=== PATIENT | female | born 1965 | race Caucasian/White ===

== ENCOUNTER 2016-11-26 | Emergency (ER) | payer MEDICAID | END 2016-11-26 12:27 | disposition home or self-care (01) ==

== ENCOUNTER 2017-02-14 10:03 | Outpatient (CLI) | payer MEDICAID | END 2017-02-14 10:04 | disposition home or self-care (01) | DX: Z12.31 Encounter for screening mammogram for malignant neoplasm of breast (principal) ==

== ENCOUNTER 2017-08-18 08:00 | Outpatient (CLI) | payer MEDICAID ==
[2017-08-18 19:15] LABS: BASOPHILS % (AUTO) 0.6 %; EOSINOPHILS # (AUTO) 0.2 10^3/uL (0.0-0.7); EOSINOPHILS % (AUTO) 3.3 %; HCT - HEMATOCRIT 41.7 % (37.0-47.0); HGB - HEMOGLOBIN 13.7 g/dL (12.0-16.0); LYMPHOCYTES % (AUTO) 26.1 %; MEAN CORPUSCULAR HEMOGLOBIN 29.7 pg (27.0-31.0); MEAN CORPUSCULAR VOLUME 90.1 fL (81.0-99.0); MEAN PLATELET VOLUME 8.3 fL (7.9-10.8); MONOCYTES # (AUTO) 0.5 10^3/uL (0.0-1.0); MONOCYTES % (AUTO) 6.2 %; NEUTROPHILS # (AUTO) 4.8 10^3/uL (1.5-6.6); NEUTROPHILS % (AUTO) 63.8 %; NUCLEATED RED BLOOD CELLS AUTO 0.2 /100WBC; RED BLOOD COUNT 4.62 10^6/uL (4.20-5.40); RED CELL DISTRIBUTION WIDTH 13.6 % (12.0-15.0); UNCORRECTED WHITE BLOOD COUNT 7.5 x10^3/uL; WHITE BLOOD COUNT 7.5 x10^3/uL (4.8-10.8)
[2017-08-18 19:39] LABS: BILIRUBIN,TOTAL 0.8 mg/dL (0.2-1.0); CALCIUM 9.2 mg/dL (8.5-10.3); CREATININE 0.7 mg/dL (0.4-1.0); POTASSIUM 3.9 mmol/L (3.5-5.0); TOTAL PROTEIN 8.4 g/dL (6.7-8.2)
== END 2017-08-18 23:59 | disposition home or self-care (01) ==
LOC: LAB.WCP 08:00
PROVIDERS: ATTEND Family Medicine
DX: I10 Essential (primary) hypertension (principal)
CPT/HCPCS: 36415; 80053; 85025

== ENCOUNTER 2018-03-20 13:54 | Outpatient (CLI) | payer MEDICAID | END 2018-03-20 13:55 | disposition home or self-care (01) | LOC: LAB.WCP 13:54 | PROVIDERS: ATTEND Family Medicine | DX: T14.8XXA Other injury of unspecified body region, initial encounter (principal) | CPT/HCPCS: 87070; 87205 ==

== ENCOUNTER 2019-01-13 18:43 | Emergency (ER) | payer MEDICAID ==
--- NOTE | 2019-01-13 19:15 | ED Physician Documentation ---
PD HPI UPPER EXT INJURY - Stated complaint Stated Complaint: LT HAND INJURY - Chief complaint Chief Complaint: Ext Problem - History obtained from History obtained from: Patient - History of Present Illness Location: Left (Left second third and fourth fingers were caught in a car door today and she has moderate pain but declines pain medication. She is right- handed.) Review of Systems Constitutional: reports: Reviewed and negative Cardiac: reports: Reviewed and negative Respiratory: reports: Reviewed and negative PD PAST MEDICAL HISTORY - Past Medical History Cardiovascular: Hypertension GI: GERD - Past Surgical History Past Surgical History: No - Present Medications Home Medications: Ambulatory Orders Medication Instructions Recorded Confirmed Esomeprazole Magnesium [Nexium] 20 mg PO DAILY 06/06/16 06/06/16 Lisinopril 10 mg PO DAILY 06/06/16 06/06/16 - Allergies Allergies/Adverse Reactions: Allergies Allergy/AdvReac Type Severity Reaction Status Date / Time No Known Drug Allergies Allergy Verified 01/13/19 18:49 - Social History Does the pt smoke?: No Smoking Status: Never smoker Does the pt drink ETOH?: No Does the pt have substance abuse?: No - Immunizations Immunizations are current?: Yes - POLST Patient has POLST: No PD ED PE NORMAL - Vitals Vital signs reviewed: Yes - General General: Alert and oriented X 3, No acute distress - Extremities Extremities: Other (There are small linear ecchymoses over the mid phalanges of the second third and fourth left fingers dorsally without deformity or limited range of motion. She has normal neurovascular function at the tips.) - Neuro Neuro: Alert and oriented X 3, Normal speech Results - Vitals Vitals: Vital Signs - 24 hr 01/13/19 18:48 Temperature 36.3 C L Heart Rate 71 Respiratory 20 Rate Blood Pressure 142/83 H O2 Saturation 99 Oxygen O2 Source Room air Departure - Departure Disposition: 01 Home, Self Care Clinical Impression: Crushing injury of left hand and finger Qualifiers: Encounter type: initial encounter Qualified Code(s): S67.22XA - Crushing injury of left hand, initial encounter Condition: Good Record reviewed to determine appropriate education?: Yes Instructions: ED Crush Injury Finger No Fx Comments: Keep it elevated and ice as needed for pain control. You can take Tylenol or ibuprofen as needed for pain control. Return if worse. Follow-up with your doctor in a week if not better.
--- NOTE | 2019-01-13 20:01 | XRAY Report ---
Reason: hand inj Procedure Date: 01/13/2019 Accession Number: [id number] / [id number] Procedure: XR - Hand 3 View LT CPT Code: FULL RESULT: EXAM: LEFT HAND RADIOGRAPHY EXAM DATE: 01/13/2019 07:27 PM. CLINICAL HISTORY: Trauma, pain. COMPARISON: None. TECHNIQUE: 3 views. FINDINGS: Bones: Normal. No fractures or bone lesions. Joints: Normal. No subluxations. Soft Tissues: Unremarkable. IMPRESSION: Normal hand radiography. RADIA
[2019-01-13 20:25] VITALS: BP 144/76
== END 2019-01-13 20:24 | disposition home or self-care (01) ==
LOC: ED 18:43
DX: S67.22XA Crushing injury of left hand, initial encounter (principal); S60.042A Contusion of left ring finger without damage to nail, initial encounter; S60.032A Contusion of left middle finger without damage to nail, initial encounter; S60.022A Contusion of left index finger without damage to nail, initial encounter; W23.0XXA Caught, crushed, jammed, or pinched between moving objects, initial encounter; Y92.810 Car as the place of occurrence of the external cause; I10 Essential (primary) hypertension
CPT/HCPCS: 99282; 99283

== ENCOUNTER 2019-12-13 09:37 | Outpatient (CLI) | payer MEDICAID ==
[2019-12-13 12:08] LABS: BASOPHILS # (AUTO) 0.1 10^3/uL (0.0-0.1); BASOPHILS % (AUTO) 0.8 %; EOSINOPHILS # (AUTO) 0.3 10^3/uL (0.0-0.7); EOSINOPHILS % (AUTO) 4.3 %; HGB - HEMOGLOBIN 13.7 g/dL (12.0-16.0); LYMPHOCYTES # (AUTO) 1.8 10^3/uL (1.5-3.5); LYMPHOCYTES % (AUTO) 27.5 %; MEAN CORPUSCULAR HEMOGLOBIN 28.5 pg (27.0-31.0); MEAN CORPUSCULAR HGB CONC 31.3 g/dL (32.0-36.0); MEAN CORPUSCULAR VOLUME 91.3 fL (81.0-99.0); MEAN PLATELET VOLUME 9.7 fL (7.9-10.8); MONOCYTES # (AUTO) 0.3 10^3/uL (0.0-1.0); MONOCYTES % (AUTO) 5.3 %; NEUTROPHILS % (AUTO) 61.8 %; PLT - PLATELET COUNT 420 10^3/uL (130-450); RED CELL DISTRIBUTION WIDTH 13.2 % (12.0-15.0); WHITE BLOOD COUNT 6.4 x10^3/uL (4.8-10.8)
[2019-12-13 12:43] LABS: ALBUMIN 4.1 g/dL (3.2-5.5); ALKALINE PHOSPHATASE 61 IU/L (42-121); ALT ALANINE AMINOTRANSFERASE 28 IU/L (10-60); AST ASPARTATE AMINOTRANSFERASE 18 IU/L (10-42); BILIRUBIN,TOTAL 0.5 mg/dL (0.2-1.0); BUN - BLOOD UREA NITROGEN 12 mg/dL (6-20); CALCIUM 9.2 mg/dL (8.5-10.3); CARBON DIOXIDE - CO2 27 mmol/L (21-32); CHLORIDE 100 mmol/L (101-111); CHOLESTEROL 160 mg/dL; CREATININE 0.7 mg/dL (0.4-1.0); GFR - MDRD 88 (>89); GLUCOSE 90 mg/dL (70-100); HDL CHOLESTEROL 54 mg/dL; LDL CHOLESTEROL,CALCULATED 84 mg/dL; LDL/HDL RATIO 1.6 (<4.4); SODIUM 135 mmol/L (135-145); TOTAL PROTEIN 8.2 g/dL (6.7-8.2); VLDL CHOLESTEROL 22 mg/dL
[2019-12-13 12:44] LABS: HB2 TOTAL 14.2 g/dL; HEMOGLOBIN A1C 0.52 g/dL; HEMOGLOBIN A1C % 5.5 % (4.6-6.2)
[2019-12-13 12:50] LABS: FOLATE 13.74 ng/mL (5.90 - >24.8)
== END 2019-12-13 23:59 | disposition home or self-care (01) ==
LOC: LAB.WCP 09:37
PROVIDERS: ATTEND Physician Assistant Medical
DX: Z00.00 Encounter for general adult medical examination without abnormal findings (principal); I10 Essential (primary) hypertension; R41.3 Other amnesia; G40.909 Epilepsy, unspecified, not intractable, without status epilepticus
CPT/HCPCS: 36415; 80053; 80061; 82607; 82746; 83036; 83721; 84443; 85025

== ENCOUNTER 2020-12-29 08:00 | Outpatient (CLI) | payer MEDICAID | END 2020-12-29 23:59 | disposition home or self-care (01) | LOC: LAB.R 08:00 | PROVIDERS: ATTEND Family Medicine | DX: R30.0 Dysuria (principal) | CPT/HCPCS: 87086; 87181 ==

== ENCOUNTER 2021-04-06 08:00 | Outpatient (CLI) | payer MEDICAID ==
[2021-04-06 11:55] LABS: BASOPHILS # (AUTO) 0.1 10^3/uL (0.0-0.1); BASOPHILS % (AUTO) 0.9 %; EOSINOPHILS # (AUTO) 0.3 10^3/uL (0.0-0.7); EOSINOPHILS % (AUTO) 3.9 %; HCT - HEMATOCRIT 41.3 % (37.0-47.0); HGB - HEMOGLOBIN 13.3 g/dL (12.0-16.0); LYMPHOCYTES # (AUTO) 2.2 10^3/uL (1.5-3.5); LYMPHOCYTES % (AUTO) 34.2 %; MEAN CORPUSCULAR HEMOGLOBIN 29.6 pg (27.0-31.0); MEAN CORPUSCULAR HGB CONC 32.2 g/dL (32.0-36.0); MEAN PLATELET VOLUME 9.7 fL (7.9-10.8); MONOCYTES # (AUTO) 0.5 10^3/uL (0.0-1.0); MONOCYTES % (AUTO) 7.9 %; NEUTROPHILS # (AUTO) 3.4 10^3/uL (1.5-6.6); NEUTROPHILS % (AUTO) 52.8 %; PLT - PLATELET COUNT 422 10^3/uL (130-450); RED BLOOD COUNT 4.49 10^6/uL (4.20-5.40); RED CELL DISTRIBUTION WIDTH 13.1 % (12.0-15.0); WHITE BLOOD COUNT 6.5 x10^3/uL (4.8-10.8)
[2021-04-06 13:01] LABS: ALBUMIN 4.6 g/dL (3.2-5.5); ALBUMIN/GLOBULIN RATIO 1.2 (1.0-2.2); ALKALINE PHOSPHATASE 57 IU/L (42-121); ALT ALANINE AMINOTRANSFERASE 17 IU/L (10-60); AST ASPARTATE AMINOTRANSFERASE 14 IU/L (10-42); BILIRUBIN,TOTAL 0.7 mg/dL (0.2-1.0); BUN - BLOOD UREA NITROGEN 14 mg/dL (6-20); CALCIUM 9.3 mg/dL (8.5-10.3); CARBON DIOXIDE - CO2 28 mmol/L (21-32); CHLORIDE 101 mmol/L (101-111); CHOL/HDL RATIO 3.1 (<4.4); CHOLESTEROL 169 mg/dL; CREATININE 0.8 mg/dL (0.4-1.0); GFR - MDRD 75 (>89); GLUCOSE 94 mg/dL (70-100); HDL CHOLESTEROL 55 mg/dL; LDL CHOLESTEROL,CALCULATED 95 mg/dL; LDL/HDL RATIO 1.7 (<4.4); POTASSIUM 3.9 mmol/L (3.5-5.0); SODIUM 136 mmol/L (135-145); TOTAL PROTEIN 8.3 g/dL (6.7-8.2); TRIGLYCERIDES 94 mg/dL; VLDL CHOLESTEROL 19 mg/dL
[2021-04-06 13:11] LABS: THYROID STIMULATING HORMONE 5.47 uIU/mL (0.34-5.60)
== END 2021-04-06 08:01 | disposition home or self-care (01) ==
LOC: LAB.WCP 08:00
PROVIDERS: ATTEND Physician Assistant Medical
DX: Z00.00 Encounter for general adult medical examination without abnormal findings (principal); I10 Essential (primary) hypertension
CPT/HCPCS: 36415; 80053; 80061; 83721; 84443; 85025

== ENCOUNTER 2022-03-04 15:01 | Outpatient (CLI) | payer MEDICAID ==
--- NOTE | 2022-03-04 17:06 | XRAY Report ---
PROCEDURE: Shoulder 2 View LT INDICATIONS: OTHER SPRAIN LEFT SHOULDER JOINT,SEQUELA TECHNIQUE: 3 views of the shoulder were acquired. COMPARISON: None. FINDINGS: Bones: No fractures or dislocations. No suspicious bony lesions. Visualized ribs appear intact. M ild acromioclavicular joint osteoarthritis. Soft tissues: No suspicious soft tissue calcifications. IMPRESSION: No fracture. No acute osseous lesion. If there persistent symptoms or continued clinical concern for pathology, then repeat plain film radiographs (7-10 days) or advanced imaging (CT, MR, bone scan) vera uld be considered for further evaluation. Reviewed by: Bailey Sanchez MD, PhD on 03/04/2022 5:04 PM PDT Approved by: Bailey Sanchez MD, PhD on 03/04/2022 5:04 PM PDT Station ID: [id number]
== END 2022-03-04 15:02 | disposition home or self-care (01) ==
LOC: DI 15:01
PROVIDERS: ATTEND Nurse Practitioner
DX: S43.492S Other sprain of left shoulder joint, sequela (principal)

== ENCOUNTER 2022-05-23 12:29 | Emergency (ER) | payer MEDICAID ==
[2022-05-23 12:38] VITALS: BP 148/81
--- NOTE | 2022-05-23 13:34 | ED Physician Documentation ---
History of Present Illness - Stated complaint Stated Complaint: SOA - Chief complaint Chief Complaint: Resp - History obtained from History obtained from: Patient - Additonal information Additional information: 56-year-old woman with history of hypertension presents for 5 days of nasal congestion. It is associated with a dry cough. No fevers. No myalgias. She is vaccinated against COVID. She tried and OTC nasal steroid which was helpful. Review of Systems Constitutional: denies: Fever, Myalgias, Fatigue, Sweats Ears: denies: Ear pain Nose: reports: Rhinorrhea / runny nose, Congestion Throat: denies: Sore throat Respiratory: reports: Dyspnea, Cough PD PAST MEDICAL HISTORY - Past Medical History Cardiovascular: Hypertension GI: GERD - Past Surgical History Past Surgical History: No - Present Medications Home Medications: Ambulatory Orders Medication Instructions Recorded Confirmed Esomeprazole Magnesium [Nexium] 20 mg PO DAILY 06/06/16 06/06/16 lisinopriL [Lisinopril] 10 mg PO DAILY 06/06/16 06/06/16 Albuterol Sulf [Ventolin Hfa 1 - 2 puffs INH Q4HR PRN #1 inhaler 05/23/22 Inhaler] Guaifenesin/Dextromethorphan 1 each PO BID PRN #20 tab 05/23/22 [Mucinex Dm ER 600-30 mg Tablet] - Allergies Allergies/Adverse Reactions: Allergies Allergy/AdvReac Type Severity Reaction Status Date / Time No Known Drug Allergies Allergy Verified 05/23/22 12:38 - Social History Does the pt smoke?: No Smoking Status: Never smoker Does the pt drink ETOH?: No Does the pt have substance abuse?: No - Immunizations Immunizations are current?: Yes - POLST Patient has POLST: No PD ED PE NORMAL - Vitals Vital signs reviewed: Yes - General General: Alert and oriented X 3, No acute distress - HEENT HEENT: PERRL, EOMI, Pharynx benign, Other (No sinus tenderness, TMs normal) - Neck Neck: Supple, no meningeal sign, No bony TTP - Cardiac Cardiac: RRR, No murmur - Respiratory Respiratory: No respiratory distress, Clear bilaterally - Abdomen Abdomen: Non tender - Derm Derm: No rash - Neuro Neuro: Alert and oriented X 3, Normal speech Results - Vitals Vitals: Vital Signs - 24 hr 05/23/22 12:33 Temperature 36.0 C L Heart Rate 84 Respiratory 18 Rate Blood Pressure 148/81 H O2 Saturation 97 Oxygen O2 Source Room air PD MEDICAL DECISION MAKING - ED course ED course: 56-year-old woman with signs and symptoms consistent with viral URI. Watchful waiting was advised. Departure - Departure Disposition: 01 Home, Self Care Clinical Impression: Viral URI Condition: Good Record reviewed to determine appropriate education?: Yes Instructions: ED Viral Syndrome Prescriptions: Albuterol Sulf [Ventolin Hfa Inhaler] 1 - 2 puffs INH Q4HR PRN #1 inhaler PRN Reason: Shortness Of Air/Wheezing Guaifenesin/Dextromethorphan [Mucinex Dm ER 600-30 mg Tablet] 1 each PO BID PRN #20 tab PRN Reason: Cough or congestion Comments: It is fine to keep using the steroid nasal spray that you have been using. Return for new or worsening symptoms. Follow-up with your doctor if not better by Friday. You have a Covid test pending. You need to self quarantine until the result is done and negative. Do not leave your house. Do not get near anybody. The results should be done in 48 to 72 hours. We will call with a positive result, the fastest way to get a negative result for confirmation though is to go to the hospital website at [email or web address], click on the my [facility] tab and sign up for the patient portal. If any friends or family get sick and would like to have a Covid test done, but do not have signs or symptoms that would necessitate being hospitalized, there are multiple local options for Covid testing. [facility] keeps an updated list of testing and vaccination options at: [email or web address]. Forms: Activity restrictions
[2022-05-23] MEDS ORDERED: ACETAMINOPHEN 500 MG TABLET PO STA (13:35)
== END 2022-05-23 13:52 | disposition home or self-care (01) ==
LOC: ED 12:29
DX: U07.1 COVID-19 (principal); J06.9 Acute upper respiratory infection, unspecified; I10 Essential (primary) hypertension
CPT/HCPCS: 87635; 99282; 99283; A9270

== ENCOUNTER 2023-01-23 13:36 | Outpatient (CLI) | payer MEDICAID ==
--- NOTE | 2023-01-23 16:10 | XRAY Report ---
PROCEDURE: Knee 2 View LT INDICATIONS: KNEE PAIN LEFT TECHNIQUE: 2 views of the left knee(s) were acquired. COMPARISON: None. FINDINGS: Bones: No fractures or dislocations. No suspicious bony lesions. Soft tissues: No joint effusion. No suspicious soft tissue calcifications. IMPRESSION: No acute bony abnormality. No significant osteoarthritis. Reviewed by: Teto Cedillo on 01/23/2023 4:08 PM [facility] Approved by: Teto Cedillo on 01/23/2023 4:08 PM [facility] Station ID: [id number]
== END 2023-01-23 13:37 | disposition home or self-care (01) ==
LOC: DI 13:36
PROVIDERS: ATTEND Family Medicine
DX: M25.562 Pain in left knee (principal)

== ENCOUNTER 2023-02-24 08:06 | Emergency (ER) | payer MEDICAID ==
--- NOTE | 2023-02-24 09:06 | ED Physician Documentation ---
PD HPI LOWER EXT INJURY - Stated complaint Stated Complaint: LT LEG PX - Chief complaint Chief Complaint: Ext Problem - History obtained from History obtained from: Patient - History of Present Illness PD HPI LOW EXT INJURY LOCATION: Left, Knee Type of injury: Twist (not forcefully). No: Fall, Blunt / blow Where injury occurred: Home Timing - onset: How many months ago (1) Timing - details: Abrupt onset, Still present (had onset of pain 1 month ago and has continued with pain on certain movements. Some clicking and giving out, but today a firm pop feeling and now pain unable to bend/walk. She has crutches at home but not using them.), Waxing and waning (was having pains with stepping/stairs, torsional movement on knee, and flexion. Much worse abruptly today.) Worsened by: Moving (flexion and torsional externally.). No: Palpating Associated symptoms: Swelling. No: Weakness, Numbness Similar symptoms before: No diagnosis (was seen in walk in 01/23/23 and had outpt xray which did not show any fractures. she was referred to Ortho, but initially did not make appt as she thought would get better, chris in lieu of normal xray to her thinking. has now made appt and to see Ortho this week. Abrupt worse pain with giving out now) Recently seen: Clinic (1 month ago with initial knee pain/twisting.) Review of Systems Skin: denies: Abrasion (s), Laceration (s) Musculoskeletal: denies: Back pain Neurologic: denies: Focal weakness, Numbness PD PAST MEDICAL HISTORY - Past Medical History Cardiovascular: Hypertension GI: GERD Musculoskeletal: Osteoarthritis - Past Surgical History Past Surgical History: No - Present Medications Home Medications: Ambulatory Orders Medication Instructions Recorded Confirmed Esomeprazole Magnesium [Nexium] 20 mg PO DAILY 06/06/16 06/06/16 lisinopriL [Lisinopril] 10 mg PO DAILY 06/06/16 06/06/16 Albuterol Sulf [Ventolin Hfa 1 - 2 puffs INH Q4HR PRN #1 inhaler 05/23/22 Inhaler] Guaifenesin/Dextromethorphan 1 each PO BID PRN #20 tab 05/23/22 [Mucinex Dm ER 600-30 mg Tablet] HYDROcod/ACETAM 5/325 [Chimayo 5/325] 1 ea PO Q6H PRN #18 tablet 02/24/23 Meloxicam [Mobic] 7.5 mg PO BID 10 Days #20 tablet 02/24/23 - Allergies Allergies/Adverse Reactions: Allergies Allergy/AdvReac Type Severity Reaction Status Date / Time latex Allergy Rash Verified 02/24/23 08:22 - Social History Does the pt smoke?: No Smoking Status: Never smoker Does the pt drink ETOH?: No Does the pt have substance abuse?: No - Immunizations Immunizations are current?: Yes - POLST Patient has POLST: No PD ED PE NORMAL - Vitals Vital signs reviewed: Yes - General General: Alert and oriented X 3, Well developed/nourished, Other (appers in pain with rom of the knee. Holding it still in extension. ) - Derm Derm: Normal color, Warm and dry - Extremities Extremities: Other (left knee with mild effusion. Tender along medial and posteromedial aspects. able to flex it to 45 degrees on her own, then hurting more. Shifting tenderness on ROM. Cruciate testing without pain nor laxity. collateral testing some pain with valgus stress but hurts medially. Impact/Apley test hurts.) - Neuro Neuro: Alert and oriented X 3, No motor deficit, No sensory deficit Results - Vitals Vitals: Vital Signs - 24 hr 02/24/23 02/24/23 08:17 10:10 Temperature 36.2 C L 36.7 C Heart Rate 85 80 Respiratory 20 16 Rate Blood Pressure 145/77 H 140/80 H O2 Saturation 100 98 Oxygen O2 Source Room air PD Medical Decision Making - ED course Complexity details: reviewed old records (review of xray report and i viewed knee xray from 01/23/23, which had some mild arthritic changes but no fracture. ), reviewed results (previous xray 01/23/23 without bony findings. Has had giving out and pop/pain today. No direct impact. Considered but did not see value in repeat xray. Not emergent enough to get MRI today. ), considered differential (her symptoms, ability, and exam are most c/w medial meniscal tear. ), d/w patient Departure - Departure Disposition: 01 Home, Self Care Clinical Impression: Acute knee pain Condition: Stable Record reviewed to determine appropriate education?: Yes Instructions: ED Meniscal Injury Knee Poss Follow-Up: Jade Spain PA-C [Primary Care Provider] - [facility] [Provider Group] Prescriptions: Meloxicam [Mobic] 7.5 mg PO BID 10 Days #20 tablet HYDROcod/ACETAM 5/325 [Chimayo 5/325] 1 ea PO Q6H PRN #18 tablet PRN Reason: Pain Comments: I understand your knee x-ray from a month ago had been normal but that only addresses issues related to the bones. Approximately 80% of knee problems r elated to the other soft tissue structures of the ligaments muscles and cartilage. Your symptoms and exam seem most likely to be a medial meniscal/cartilage process. There is probably a partial tear which have been accounting for your symptoms and it may have torn more fully today with the worse symptoms. I would still have the orthopedic consultation tomorrow as planned. They may want to do other type of imaging to evaluate the rest of the knee structures, such as an MRI. The that would be for the orthopedics to decide upon and provide referral for. Meanwhile we will treat the knee with the knee brace to reduce motion and rotation in the joint. This helps quiet down the inflammation of the ligaments and cartilage. Use your crutches at home for partial to no weightbearing as needed for comfort at this time. Progress weightbearing as tolerated. Use a combination of some ice periodically to help with swelling and some anti- inflammatories twice daily with food. To that add Tylenol every 4-6 hours if needed for pain or hydrocodone if needed for worse pain. I provided prescriptions to [facility] pharmacy. I am prescribing a short course of narcotic pain medication for you. These are potentially dangerous and addictive medications that should be used carefully. These medications may constipate you. Take an vurx-vbx-fwwqacg stool softener such as docusate twice daily with plenty of water while taking these medications. If you go 24 hours without a bowel movement, take iedy-mek-sluypem MiraLAX, per package instructions. Do not drink or drive while taking these medications. If you received narcotic or sedating medications while in the emergency department do not drive for 24 hours. Store this medication in a safe, secure place and out of reach of children. It is a violation of federal law to give or sell this medication to another person or to use in a manner other than prescribed. The ED will not refill narcotic prescriptions, including prescriptions lost or s tolen. You can dispose of unwanted medications at the [facility]'s office or at several pharmacies such as [facility]. Discharge Date/Time: 02/24/23 10:11
[2023-02-24] MEDS ORDERED: HYDROcod/ACETAM 5/325 MG TABLET PO STA (09:28)
[2023-02-24] MEDS ORDERED: NAPROXEN 250 MG TABLET PO STA (09:29)
[2023-02-24 10:11] VITALS: BP 140/80
== END 2023-02-24 10:11 | disposition home or self-care (01) ==
LOC: ED 08:06
DX: M25.562 Pain in left knee (principal)
CPT/HCPCS: 99282; 99283; A9270

== ENCOUNTER 2023-02-25 16:44 | Outpatient (CLI) | payer MEDICAID ==
--- NOTE | 2023-02-25 16:51 | XRAY Report ---
PROCEDURE: Knee 3 View LT INDICATIONS: LEFT KNEE PAIN, BILAT PA, LEFT TUNNEL, LT SUNRISE ONLY TECHNIQUE: 3 views of the left knee(s) were acquired. COMPARISON: None. FINDINGS: Bones: No fractures or dislocations. No suspicious bony lesions. There are small medial compartme nt and patellofemoral osteophytes. Soft tissues: No effusion. No suspicious soft tissue calcifications or masses. IMPRESSION: Trace left knee osteoarthritis. Reviewed by: Lilia Gillespie MD on 02/25/2023 4:50 PM PDT Approved by: Lilia Gillespie MD on 02/25/2023 4:50 PM PDT Station ID: [id number]
== END 2023-02-25 16:45 | disposition home or self-care (01) ==
LOC: DI.WOS 16:44
PROVIDERS: ATTEND Physician Assistant Surgical
DX: M17.12 Unilateral primary osteoarthritis, left knee (principal)

== ENCOUNTER 2023-05-01 12:37 | Emergency (ER) | payer MEDICAID ==
[2023-05-01 12:54] VITALS: BP 123/76
[2023-05-01] MEDS ORDERED: BENZONATATE 100 MG CAPSULE PO STA (12:56)
--- NOTE | 2023-05-01 12:57 | ED Physician Documentation ---
PD HPI URI - Stated complaint Stated Complaint: CONGESTION,RICHARD - Chief complaint Chief Complaint: Heent - History obtained from History obtained from: Patient (Medically healthy 57-year-old woman has been sick for about 3 to 4 days with dry cough, nasal congestion and sore throat. She is here wanting a COVID test. 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 HEENT: None Psych: None Musculoskeletal: Osteoarthritis Derm: None - Past Surgical History Past Surgical History: No - Present Medications Home Medications: Ambulatory Orders Medication Instructions Recorded Confirmed Esomeprazole Magnesium [Nexium] 20 mg PO DAILY 06/06/16 06/06/16 lisinopriL [Lisinopril] 10 mg PO DAILY 06/06/16 05/01/23 - Allergies Allergies/Adverse Reactions: Allergies Allergy/AdvReac Type Severity Reaction Status Date / Time latex Allergy Rash Verified 02/24/23 08:22 - Social History Does the pt smoke?: No Smoking Status: Never smoker Does the pt drink ETOH?: No Does the pt have substance abuse?: No - Immunizations Immunizations are current?: Yes - POLST Patient has POLST: No PD ED PE NORMAL - Vitals Vital signs reviewed: Yes - General General: Alert and oriented X 3, No acute distress - HEENT HEENT: Pharynx benign - Cardiac Cardiac: RRR, No murmur - Respiratory Respiratory: No respiratory distress, Other (Slightly diminished lung sounds, no focal findings, nonlabored.) - Derm Derm: No rash - Neuro Neuro: Alert and oriented X 3 Results - Vitals Vitals: Vital Signs - 24 hr 05/01/23 05/01/23 05/01/23 12:39 12:50 13:25 Temperature 36.2 C L Heart Rate 74 Respiratory 18 18 18 Rate Blood Pressure 123/76 O2 Saturation 99 05/01/23 13:39 Temperature Heart Rate Respiratory 17 Rate Blood Pressure O2 Saturation Oxygen O2 Source Room air - Labs Labs: Laboratory Tests 05/01/23 12:45 Nasal Adenovirus (PCR) NOT DETECTED Nasal B. parapertussis DNA (PCR) NOT DETECTED Nasal Coronavir 229E PCR NOT DETECTED Nasal Coronavir HKU1 PCR NOT DETECTED Nasal Coronavir NL63 PCR NOT DETECTED Nasal Coronavir OC43 PCR NOT DETECTED Nasal Enterovir/Rhinovir PCR DETECTED A Nasal Influenza B PCR NOT DETECTED Nasal Influenza A PCR NOT DETECTED Nasal Parainfluen 1 PCR NOT DETECTED Nasal Parainfluen 2 PCR NOT DETECTED Nasal Parainfluen 3 PCR NOT DETECTED Nasal Parainfluen 4 PCR NOT DETECTED Nasal RSV (PCR) NOT DETECTED Nasal B.pertussis DNA PCR NOT DETECTED Nasal C.pneumoniae (PCR) NOT DETECTED Andrei Human Metapneumo PCR NOT DETECTED Nasal M.pneumoniae (PCR) NOT DETECTED Nasal SARS-CoV-2 (PCR) NOT DETECTED - Rads (name of study) 2 view chest x-ray is unremarkable Relevant Findings:: Final report received, EMP independent interpretation of test PD Medical Decision Making - ED course ED course: 57-year-old woman with viral URI. Mostly here wanting a COVID test and this is done. She had diminished lungs and chest x-ray was performed as well without pertinent positive findings. Bio fire respiratory panel was done and triage and positive for entero- /rhinovirus. I called patient to notify and left a voicemail which was not immediately returned. Departure - Departure Disposition: 01 Home, Self Care Clinical Impression: Viral URI Condition: Good Record reviewed to determine appropriate education?: Yes Instructions: ED Viral Syndrome Comments: COVID test still pending, I will call you within the next few hours from a 288 prefix at [phone] if it is positive. Follow-up with your doctor in a week if not better, return for new or worsening symptoms. Discharge Date/Time: 05/01/23 13:40
--- NOTE | 2023-05-01 13:28 | XRAY Report ---
PROCEDURE: Chest 2 View X-Ray INDICATIONS: cough TECHNIQUE: 2 views of the chest were acquired. COMPARISON: None. FINDINGS: Surgical changes and devices: None. Lungs and pleura: No pleural effusions or pneumothorax. Lungs are clear. Mediastinum: Mediastinal contours appear normal. Heart size is normal. Bones and chest wall: No suspicious bony lesions. Overlying soft tissues appear unremarkable. IMPRESSION: No acute cardiopulmonary process. Reviewed by: Piper Balbuena MD on 05/01/2023 1:27 PM PDT Approved by: Piper Balbuena MD on 05/01/2023 1:27 PM PDT Station ID: [id number]
[2023-05-01 13:53] LABS: B. PARAPERTUSSIS- RESP PCR PAN NOT DETECTED; B. PERTUSSIS- RESP PCR PANEL NOT DETECTED; C. PNEUMONIAE- RESP PCR PANEL NOT DETECTED; CORONAVIRUS 229E-RESP PCR NOT DETECTED; CORONAVIRUS HKU1-RESP PCR NOT DETECTED; CORONAVIRUS NL63-RESP PCR NOT DETECTED; CORONAVIRUS OC43-RESP PCR NOT DETECTED; HUMAN METAPNEUMOVIRUS NOT DETECTED; INFLUENZA A- RESP PCR PANEL NOT DETECTED; INFLUENZA B - RESP PCR PANEL NOT DETECTED; M. PNEUMONIAE- RESP PCR PANEL NOT DETECTED; PARAINFLUENZA VIRUS 1 NOT DETECTED; PARAINFLUENZA VIRUS 2 NOT DETECTED; PARAINFLUENZA VIRUS 3 NOT DETECTED; PARAINFLUENZA VIRUS 4 NOT DETECTED; RHINOVIRUS/ENTEROVIRUS DETECTED; RSV- RESP PCR PANEL NOT DETECTED; SARS-CoV-2 -RESP PCR PANEL NOT DETECTED
== END 2023-05-01 13:40 | disposition home or self-care (01) ==
LOC: ED 12:37
DX: J06.9 Acute upper respiratory infection, unspecified (principal); I10 Essential (primary) hypertension; Z20.822 Contact with and (suspected) exposure to COVID-19
CPT/HCPCS: 71046; 87633; 99283; 99284; A9270

== ENCOUNTER 2023-06-13 17:12 | Emergency (ER) | payer MEDICAID ==
[2023-06-13 17:24] VITALS: BP 135/95
--- NOTE | 2023-06-13 17:30 | ED Physician Documentation ---
PD HPI LOWER EXT INJURY - Stated complaint Stated Complaint: LT FOOT SWOLLEN - Chief complaint Chief Complaint: Ext Problem - History obtained from History obtained from: Patient - Additional information Additional information: She has been wearing a knee brace for several months now. This is on the left. Today she worked a double shift on her feet and noticed at the end of her shift that she had swelling around the ankle. About 5 days ago she slammed her toes into the headboard and has had pain and swelling of the foot since then. 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 HEENT: None Psych: None Musculoskeletal: Osteoarthritis Derm: None - Past Surgical History Past Surgical History: No - Present Medications Home Medications: Ambulatory Orders Medication Instructions Recorded Confirmed Esomeprazole Magnesium [Nexium] 20 mg PO DAILY 06/06/16 06/06/16 lisinopriL [Lisinopril] 10 mg PO DAILY 06/06/16 05/01/23 - Allergies Allergies/Adverse Reactions: Allergies Allergy/AdvReac Type Severity Reaction Status Date / Time latex Allergy Rash Verified 06/13/23 17:16 - Social History Does the pt smoke?: No Smoking Status: Never smoker Does the pt drink ETOH?: No Does the pt have substance abuse?: No - Immunizations Immunizations are current?: Yes - POLST Patient has POLST: No PD ED PE NORMAL - Vitals Vital signs reviewed: Yes - General General: Alert and oriented X 3, No acute distress - Extremities Extremities: Other (I am unable to elicit any tenderness of the foot but she states that it is numb. Blood flow is good both checking the pulses and with cap refill. She does have modest edema about the left ankle. She is wearing knee brace, the edema only goes up to the distal calf.) - Neuro Neuro: Alert and oriented X 3, Normal speech - Psych Psych: Normal mood, Normal affect Results - Vitals Vitals: Vital Signs - 24 hr 06/13/23 17:16 Temperature 36.5 C Heart Rate 86 Respiratory 16 Rate Blood Pressure 135/95 H O2 Saturation 97 Oxygen O2 Source Room air - Rads (name of study) Three-view x-ray of the right foot is unremarkable Relevant Findings:: Final report received, EMP independent interpretation of test Left leg ultrasound shows no DVT. She does have a knee joint effusion and a Jansen's cyst. Relevant Findings:: Final report received, EMP independent interpretation of test PD Medical Decision Making - ED course ED course: 57-year-old woman presents with unilateral pedal edema after being up on her feet all day. She does have a brace on the left knee from an ongoing problem there. She also smacked her toe against a bedpost yesterday and saw things on there. I suspect the swelling is a combination of being on her feet all day, wearing a brace on the knee, and having the injury to the foot. Relevant x-rays were negative and no evidence of DVT on ultrasound. Departure - Departure Disposition: 01 Home, Self Care Clinical Impression: Pedal edema Condition: Good Record reviewed to determine appropriate education?: Yes Instructions: ED Leg Swelling Unilateral Comments: The ultrasound of your leg did not show a clot. You do have a Jansen's cyst which is a degenerative issue with the fluid in your knee. The x-ray of your left foot did not show any abnormalities. I think most of the swelling today is just from the combination as we discussed of wearing the brace and then being up on her feet all day from a double shift. Return if worse. Forms: PCP List Discharge Date/Time: 06/13/23 18:36
--- NOTE | 2023-06-13 18:23 | XRAY Report ---
PROCEDURE: Foot 3 View LT INDICATIONS: leg/foot swelling TECHNIQUE: 3 views of the foot were acquired. COMPARISON: None. FINDINGS: Bones: No fractures or dislocations. No suspicious bony lesions. Soft tissues: No suspicious soft tissue calcifications or masses. IMPRESSION: No acute bony abnormality. Reviewed by: Raghu Funez MD on 06/13/2023 6:22 PM PDT Approved by: Raghu Funez MD on 06/13/2023 6:22 PM PDT Station ID: [id number]
--- NOTE | 2023-06-13 18:33 | Ultrasound Report ---
PROCEDURE: Duplex Ext Veins Left INDICATIONS: leg/foot swelling TECHNIQUE: Real-time imaging, as well as color and pulse Doppler interrogation, were performed of the lower extr emity deep veins from the inguinal ligament to the popliteal fossa. COMPARISON: None. FINDINGS: The deep veins are normally compressible, and free of intraluminal thrombus. Color and pu lse Doppler demonstrate normal phasic intraluminal flow. There is normal augmentation response to di stal compression maneuver. 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 There is a left knee joint effusion. IMPRESSION: 1. Negative left lower extremity ultrasound for DVT. 2. Jansen's cyst. 3. Knee joint effusion. Reviewed by: Raghu Funez MD on 06/13/2023 6:31 PM PDT Approved by: Raghu Funez MD on 06/13/2023 6:31 PM PDT Station ID: [id number]
== END 2023-06-13 18:36 | disposition home or self-care (01) ==
LOC: ED 17:12
DX: R60.0 Localized edema (principal); M71.22 Synovial cyst of popliteal space [Baker], left knee
CPT/HCPCS: 99283; 99284